=== PATIENT | female | born 1985 | race Caucasian/White ===

== ENCOUNTER 2021-06-16 06:58 | Inpatient (IN) | payer BC ==
[2021-06-16] MEDS ORDERED: Butorphanol Tartrate 1 MG/ML VIAL SLOW IVP PRN (07:50)
[2021-06-16] MEDS ORDERED: Lidocaine 1% (PF) 30 ML VIAL SC PRN (07:50)
[2021-06-16] MEDS ORDERED: Methylergonovine 0.2 MG/ML VIAL IM PRN (07:50)
[2021-06-16] MEDS ORDERED: HYDROcodone/Acetaminophen 5/325 mg Tablet PO PRN ×4 (07:50→15:01)
[2021-06-16] MEDS ORDERED: Carboprost 250 MCG/ML AMP IM PRN (07:50)
[2021-06-16] MEDS ORDERED: Ondansetron PF 4 MG/2 ML Vial IVP PRN ×3 (07:50→15:01)
[2021-06-16] MEDS ORDERED: Promethazine HCl 25 MG/ML VIAL IM PRN ×2 (07:50→09:23)
[2021-06-16] MEDS ORDERED: Ibuprofen 800 MG TAB PO PRN (07:50)
[2021-06-16] MEDS ORDERED: hydrALAZINE 20 MG/ML VIAL SLOW IVP PRN ×2 (07:50→15:01)
[2021-06-16] MEDS ORDERED: Diphenoxylate HCl/Atropine Tablet PO PRN ×2 (07:50)
[2021-06-16] MEDS ORDERED: Misoprostol 200 MCG TAB PR PRN (07:50)
[2021-06-16] MEDS ORDERED: NS w/ Oxytocin 30 units 500 ML IV SCH ×3 (08:00→15:01)
[2021-06-16] MEDS ORDERED: ePHEDrine Sulfate 50 MG/10 ML VIAL ONE (08:00)
[2021-06-16] MEDS ORDERED: Terbutaline Sulfate 1 MG/ML VIAL ONE (08:00)
[2021-06-16] MEDS ORDERED: Lactated Ringer's 1,000 ML IV SCH (08:00)
[2021-06-16] MEDS ORDERED: Bupivacaine 0.25% HCL 30 ML VIAL ONE (08:00)
[2021-06-16] MEDS ORDERED: Fentanyl 2 mcg/Bup 0.1% Cadd 100 ML ONE (08:31)
[2021-06-16 08:49] LABS: Hemoglobin 11.5 g/dL (12.0-15.5); Mean Corpuscular HGB CONC 34.2 g/dL (32.0-36.0); Mean Corpuscular Volume 84.8 fl (81.6-98.3); Mean Platelet Volume 11.2 fl (7.4-10.4); Platelet Count 183 10x3/uL (150-450); RBC Distribution Width 12.7 % (11.5-14.5); Red Blood Cell (RBC) Count 3.96 10x6/uL (3.90-5.03); White Blood Cell (WBC) Count 11.1 10x3/uL (3.5-10.5)
[2021-06-16] MEDS ORDERED: Hydrocerin (Eucerin) Cream 120 gm Jar TOP PRN (09:23)
[2021-06-16] MEDS ORDERED: Acetaminophen 325 MG TAB PO PRN (09:23)
[2021-06-16] MEDS ORDERED: Naloxone HCl 0.4 mg/ml Vial IVP PRN ×2 (09:23)
[2021-06-16] MEDS ORDERED: diphenhydrAMINE 50 MG/ML VIAL IVP PRN (09:23)
[2021-06-16] MEDS ORDERED: ePHEDrine Sulfate 50 MG/10 ML VIAL SLOW IVP PRN (09:23)
[2021-06-16] MEDS ORDERED: Fentanyl 2 mcg/Bupivacaine 0.1% Cassette 100 ML EPIDURAL SCH (09:30)
[2021-06-16] MEDS ORDERED: Communication Order-Pharmacy FS SCH (09:30)
[2021-06-16 09:32] LABS: Hep B Surf Ag Non-Reactive S/CO (NonReactive)
[2021-06-16 09:34] LABS: Syphilis Antibody Nonreactive (Nonreactive); Syphilis Antibody Index 0.06 S/CO (<1.00 Non-Reactive)
[2021-06-16 09:49] VITALS: BMI 27.1
[2021-06-16] MEDS ORDERED: Lactated Ringer's 1,000 ML IV PRN (10:36)
[2021-06-16] MEDS ORDERED: Lanolin Ointment 7 GM TUBE TOP PRN (15:01)
[2021-06-16] MEDS ORDERED: Bisacodyl 10 MG SUPP PR PRN (15:01)
[2021-06-16] MEDS ORDERED: Misoprostol 200 MCG TAB VAG PRN (15:01)
[2021-06-16] MEDS ORDERED: Milk Of Magnesia 30 ML UDCUP PO PRN (15:01)
[2021-06-16] MEDS ORDERED: Boostrix 0.5 ML (Tdap) VIAL IM ONE (15:01)
[2021-06-16] MEDS ORDERED: Benzocaine-Menthol 82.5 ML CAN TOP PRN (15:01)
[2021-06-16 15:32] LABS: HIV (1/2) Antibody/Antigen Non-Reactive (NonReactive); HIV 1/2 INDEX 0.21 S/CO (<1.00)
[2021-06-16] MEDS: Ibuprofen 800 MG TAB PO SCH (17:16)
[2021-06-16] MEDS: Ferrous Sulfate 325 MG TAB PO SCH (17:17)
[2021-06-16] MEDS: Docusate 100 MG CAP PO SCH (20:39)
[2021-06-17] MEDS: Ibuprofen 800 MG TAB PO SCH ×3 (04:42→14:44)
[2021-06-17] MEDS ORDERED: Prenatal Vitamin 1 TAB PO SCH (09:00)
[2021-06-17] MEDS: Docusate 100 MG CAP PO SCH (09:19)
[2021-06-17] MEDS: Ferrous Sulfate 325 MG TAB PO SCH ×2 (09:19→16:09)
[2021-06-17 12:19] VITALS: BP 102/53; TEMP 98.3
== END 2021-06-17 16:30 | disposition home or self-care (01) | DRG 807 ==
LOC: CSHLD/OP 06:58 → CSHLD 08:47 → CSHPP 15:00
PROVIDERS: ADMIT Obstetrics & Gynecology; ATTEND Obstetrics & Gynecology
PROC: 10E0XZZ Delivery of Products of Conception, External Approach (ICD-10-PCS; principal; 2021-06-16)
PROC: 0HQ9XZZ Repair Perineum Skin, External Approach (ICD-10-PCS; 2021-06-16)
DX: O76 Abnormality in fetal heart rate and rhythm complicating labor and delivery (principal); Z37.0 Single live birth; O70.0 First degree perineal laceration during delivery; Z3A.40 40 weeks gestation of pregnancy; Z86.16 Personal history of COVID-19; Z88.0 Allergy status to penicillin
CPT/HCPCS: 85027; 86780; 86850; 86900; 86901; 87340; 87389; J2590; J3105; S0020

== ENCOUNTER 2023-06-07 20:46 | Emergency (ER) | payer BC ==
[2023-06-07 21:17] LABS: Bilirubin Neg (Negative); Blood, Urine 250 (Negative); Clarity Slightly Cloudy (Clear); Glucose, Urine (Dipstick) Normal (Negative); Ketone, Urine Negative (Negative); Leukocyte 25 (Negative); Nitrite Negative (Negative); Protein, Urine (Dipstick) 30 mg/dl (Neg-Trace); Specific Gravity, Urine 1.025 (1.005-1.030); Urobilinogen Normal mg/dL (Less than 2)
[2023-06-07 21:31] LABS: Bacteria/HPF None Seen HPF (None Seen); CAUTI Indications for Culture Pregnancy; RBC/HPF Greater than 50 HPF (0-3); Squamous Epithelial 0-3 HPF (0-3); WBC/HPF 0-3 HPF (0-3)
[2023-06-07 21:32] LABS: Urine Culture Reflex Yes Yes
== END 2023-06-07 22:19 | disposition home or self-care (01) ==
LOC: CSHERS 20:46
DX: O20.0 Threatened abortion (principal); Z3A.01 Less than 8 weeks gestation of pregnancy
CPT/HCPCS: 36415; 76817; 81001; 84702; 86900; 86901; 87086

== ENCOUNTER 2024-12-23 00:24 | Inpatient (IN) | payer BC ==
[2024-12-30] MEDS ORDERED: HYDROcodone/Acetaminophen 5/325 mg Tablet PO PRN ×4 (03:47→19:30)
[2024-12-30] MEDS ORDERED: hydrALAZINE 20 MG/ML VIAL SLOW IVP PRN ×2 (03:47→19:30)
[2024-12-30] MEDS ORDERED: Methylergonovine 0.2 MG/ML VIAL IM PRN (03:47)
[2024-12-30] MEDS ORDERED: Ibuprofen 800 MG TAB PO PRN (03:47)
[2024-12-30] MEDS ORDERED: Lidocaine 1% (PF) 30 ML VIAL SC PRN (03:47)
[2024-12-30 03:48] VITALS: BMI 28.3
[2024-12-30] MEDS ORDERED: Oxytocin 30 units/NS 500 ML 500 ML IV SCH ×2 (04:00→19:30)
[2024-12-30 04:36] LABS: Hematocrit 32.5 % (34.9-44.5); Hemoglobin 10.8 g/dL (12.0-15.5); Mean Corpuscular Hemoglobin 29.2 pg (27.0-33.0); Mean Corpuscular Volume 87.8 fL (81.6-98.3); Platelet Count 152 10x3/uL (150-450); Red Blood Cell (RBC) Count 3.70 10x6/uL (3.90-5.03); White Blood Cell (WBC) Count 9.31 10x3/uL (3.5-10.5)
[2024-12-30] MEDS ORDERED: Acetaminophen 325 MG TAB PO PRN (04:58)
[2024-12-30] MEDS ORDERED: diphenhydrAMINE 50 MG/ML VIAL IVP PRN (04:58)
[2024-12-30] MEDS ORDERED: Ondansetron PF 4 MG/2 ML Vial IVP PRN ×2 (04:58→19:30)
[2024-12-30] MEDS ORDERED: fentaNYL 2 mcg/Ropivacaine 0.2% Epidural 100 ML CADD EPIDURAL SCH (05:00)
[2024-12-30] MEDS ORDERED: Communication Order-Pharmacy FS SCH (05:00)
[2024-12-30] MEDS: fentaNYL/Ropivacaine Epidural 100 ML ONE (05:09)
[2024-12-30 05:15] LABS: Hep B Surf Ag - L&D Non-Reactive S/CO (NonReactive)
[2024-12-30 05:16] LABS: Syphilis Antibody Index 0.08 S/CO (<1.00 Non-Reactive)
[2024-12-30] MEDS: Ondansetron PF 4 MG/2 ML Vial IVP PRN (08:48)
[2024-12-30] MEDS: Oxytocin 30 units/NS 500 ML 500 ML IV SCH (12:20)
[2024-12-30] MEDS ORDERED: Milk Of Magnesia 30 ML UDCUP PO PRN (19:30)
[2024-12-30] MEDS ORDERED: Benzocaine-Menthol 82.5 ML CAN TOP PRN (19:30)
[2024-12-30] MEDS ORDERED: Bisacodyl 10 MG SUPP PR PRN (19:30)
[2024-12-30] MEDS: Ferrous Sulfate 325 MG TAB PO SCH (21:31)
[2024-12-30] MEDS: Boostrix 0.5 ML (Tdap) VIAL (>/=7 yrs of age) IM ONE (21:31)
[2024-12-31] MEDS: Ibuprofen 800 MG TAB PO SCH (01:33)
[2024-12-31 04:08] VITALS: TEMP 97.6
[2024-12-31 09:10] VITALS: BP 121/69
== END 2024-12-31 14:50 | disposition home or self-care (01) | DRG 807 ==
LOC: CSHLD 12-29 00:27 → UNDOADMIN 12-29 00:27 → CSHLD 12-30 03:14 → CSHPP 12-30 15:57
PROVIDERS: ADMIT Obstetrics & Gynecology; ATTEND Family Medicine
PROC: 10E0XZZ Delivery of Products of Conception, External Approach (ICD-10-PCS; principal; 2024-12-30)
PROC: 0HQ9XZZ Repair Perineum Skin, External Approach (ICD-10-PCS; 2024-12-30)
DX: O48.0 Post-term pregnancy (principal); Z37.0 Single live birth; Z3A.41 41 weeks gestation of pregnancy; Z79.899 Other long term (current) drug therapy; Z88.8 Allergy status to other drugs, medicaments and biological substances; O70.0 First degree perineal laceration during delivery; O69.81X0 Labor and delivery complicated by cord around neck, without compression, not applicable or unspecified
CPT/HCPCS: 36415; 51702; 85027; 86780; 86850; 86900; 86901; 87340; 99285; J2405; J2590